=== PATIENT | female | born 1945 | race Caucasian/White ===

== ENCOUNTER 2016-12-20 09:09 | Inpatient (IN) | payer MEDICARE, OTHER ==
[~2016-12-20] VITALS: Ht 152.4 cm; Wt 50.1 kg
[~2016-12-20 09:09] MED LIST: CEPH500C3 PO
[2016-12-20 09:15] VITALS: BP 140/80; PULSE 73; RESP 16; TEMP 97.4; O2SAT 100
--- NOTE | 2016-12-20 09:42 | PD ---
HPI Chief Complaint: Fall Time Seen by Provider: 09:39 Travel History International Travel<30 days: No Contact w/Intl Traveler<30days: No Traveled to known affect area: No History of Present Illness HPI 71-year-old female patient presents to the ER today because she states that she was on a step ladder about 2 rungs up when she fell backwards onto her back on Saturday. His been 3 days and she states that she is still having significant lower back pains in the area where she fell. She also hit her head but had no loss of consciousness. She has been having headaches but no vomiting. She denies any other issues or injuries. She states her pain is currently a 9 out of 10. Modifying Factors: None Associated Signs & Symptoms: Fall from step ladder, lower back pain, minor head injury Risk Factors: None PFSH Past Medical History Diminished Hearing: No Influenza Vaccination: No Past Surgical History Other Surgery: Yes (thyroidectomy) Social History Alcohol Use: Yes (occ) Tobacco Use: No Allergies-Medications (Allergen,Severity, Reaction): Coded Allergies: No Known Allergies (Unverified , 12/20/16) Reported Meds & Prescriptions Reported Meds & Active Scripts Active No Active Prescriptions or Reported Medications Review of Systems Except as stated in HPI: all other systems reviewed are Neg Physical Exam Narrative GENERAL: Well-developed elderly white female patient currently in mild distress. Awake and oriented 3. SKIN: Focused skin assessment warm/dry. HEAD: Atraumatic. Normocephalic. EYES: Pupils equal and round. No scleral icterus. No injection or drainage. ENT: No nasal bleeding or discharge. Mucous membranes pink and moist. NECK: Trachea midline. No JVD. CARDIOVASCULAR: Regular rate and rhythm. No murmur appreciated. RESPIRATORY: No accessory muscle use. Clear to auscultation. Breath sounds equal bilaterally. GASTROINTESTINAL: Abdomen soft, non-tender, nondistended. Hepatic and splenic margins not palpable. Pelvis: Stable and nontender to palpation. MUSCULOSKELETAL: No obvious deformities. No clubbing. No cyanosis. No edema. BACK: No CVA tenderness. No rash. No point tenderness on palpation of the spine. NEUROLOGICAL: Awake and alert. No obvious cranial nerve deficits. Motor grossly within normal limits. Normal speech. PSYCHIATRIC: Appropriate mood and affect; insight and judgment normal. Data Data Last Documented VS Vital Signs Date Time Temp Pulse Resp B/P Pulse Ox O2 Delivery O2 Flow Rate FiO2 12/20/16 10:48 18 12/20/16 10:22 81 138/70 97 Room Air 12/20/16 09:[address] Brain W/O Iv Contrast(Rout) (12/20/16 09:39) Ct Lumb Spine W/O Contrast (12/20/16 09:39) Acetamin-Hydrocod 325-5 Mg ([place] 5-325 (12/20/16 09:45) MDM Medical Decision Making Medical Screen Exam Complete: Yes Emergency Medical Condition: Yes Medical Record Reviewed: Yes Interpretation(s) Last [address] Impressions [address] 12/20/16938 Signed Impressions: Service Date/Time: November 10:06 - CONCLUSION: Mild severity compressive injury at T12. No evidence of retropulsion. The injury does appear amenable to stabilization with kyphoplasty if indicated Daniel Alcala MD Head CT 12/20/16938 Signed Impressions: Service Date/Time: November 10:02 - CONCLUSION: Normal examination for a patient of this age. Kael Disla MD Differential Diagnosis Fall, back pain, head injuryrule out intracranial injuries versus fractures versus contusions Narrative Course X-rays show T12 mild compression which could be a cause of her pain. CT of the brain is negative. At this point, Diagnosis Primary Impression: T12 compression fracture Additional Instructions: Follow-up with orthopedics for further treatment. Return for any worsening in pain or new symptoms as needed. Med/Other Pt SpecificInfo: Prescription(s) given Scripts Docusate Sodium 100 Mg Ftv029 Mg PO BID #20 TAB Prov:Gentry Thompson MD 12/20/16 Hydrocodone-Acetaminophen (Lortab)5-325 Mg Tab1-2 Tab PO Q6H PRN (PAIN) #20 TAB Ref 0 Prov:Gentry Thompson MD 12/20/16 Disposition: 01 DISCHARGE HOME Condition: Stable Gentry Thompson MD December 20, 2016 09:42
[2016-12-20] MEDS ORDERED: ACETAMINOPHEN/HYDROcodone 325 MG/5 MG TAB PO ONE (09:45)
[2016-12-20 10:22] VITALS: BP 138/70; PULSE 81; RESP 18; O2SAT 97
--- NOTE | 2016-12-20 10:37 | RADHPO ---
EXAM DATE/TIME: 12/20/2016 10:02 [facility] COMPARISON: No previous studies available for comparison. INDICATIONS : Fall from step stool three days ago, ongoing headaches. RADIATION DOSE: 58.70 CTDIvol (mGy) MEDICAL HISTORY : None SURGICAL HISTORY : None. ENCOUNTER: Initial ACUITY: 3 days PAIN SCALE: 3/10 LOCATION: Bilateral cranial TECHNIQUE: Multiple contiguous axial images were obtained of the head. Using automated exposure control and adj ustment of the mA and/or kV according to patient size, radiation dose was kept as low as reasonably a chievable to obtain optimal diagnostic quality images. FINDINGS: CEREBRUM: The ventricles are normal for age. No evidence of midline shift, mass lesion, hemorrhage or acute in farction. No extra-axial fluid collections are seen. POSTERIOR FOSSA: The cerebellum and brainstem are intact. The 4th ventricle is midline. The cerebellopontine angle i s unremarkable. EXTRACRANIAL: The visualized portion of the orbits is intact. SKULL: The calvaria is intact. No evidence of skull fracture. CONCLUSION: Normal examination for a patient of this age. Kael Disla MD on December 20, 2016 at 10:32 Board Certified Radiologist. This report was verified electronically.
--- NOTE | 2016-12-20 10:43 | RADHPO ---
EXAM DATE/TIME: 12/20/2016 10:06 [facility] COMPARISON: No previous studies available for comparison. INDICATIONS : Fall three days ago, continued lower back pain. RADIATION DOSE: 18.02 CTDIvol (mGy) MEDICAL HISTORY : None SURGICAL HISTORY : None. ENCOUNTER: Initial ACUITY: 1 day PAIN SCALE: 9/10 LOCATION: lower back. TECHNIQUE: Volumetric scanning of the lumbar spine was performed. Multiplanar reconstructions in the sagittal, coronal and oblique axial planes were performed. Using automated exposure control and adjustment of the mA and/or kV according to patient size, radiation dose was kept as low as reasonably achievable t o obtain optimal diagnostic quality images. FINDINGS: Lumbar spine alignment is normal. There is a compressive injury involving T12 with about 20% loss of central to ventral vertebral body height. There is no evidence of bony retropulsion. Disruption mainl y involves the inferior endplate region. The lumbar vertebra are intact throughout. There is no evide nce of bony canal or foraminal compromise. There is mild disc disease with disc space narrowing and v acuum phenomena at L4-5. Less severe changes at other levels. There is no evidence of paraspinal karel fozia. There is posterior facet arthropathy most significantly at L4-5 CONCLUSION: Mild severity compressive injury at T12. No evidence of retropulsion. The injury does appear amenable to stabilization with kyphoplasty if indicated Daniel Alcala MD on December 20, 2016 at 10:37 Board Certified Radiologist. This report was verified electronically.
[2016-12-20] MEDS ORDERED: HYDR-3533 PO (11:08)
[2016-12-20] MEDS ORDERED: DOCU100T9 PO (11:08)
[2016-12-20 11:44] VITALS: BP 135/68; PULSE 71; RESP 20; O2SAT 99
[2016-12-20 11:44] LABS: AUTOMATED NEUTROPHIL # 10.7 TH/MM3 (1.8-7.7); BASOPHIL # 0.1 TH/MM3 (0-0.2); BASOPHIL % 0.4 % (0.0-2.0); EOSINOPHIL # 0.1 TH/MM3 (0-0.4); EOSINOPHIL % 0.4 % (0.0-4.0); HEMATOCRIT 39.5 % (35.0-46.0); LYMPH % 12.8 % (9.0-44.0); LYMPHOCYTE # 1.7 TH/MM3 (1.0-4.8); MEAN CELL VOLUME 89.5 FL (80.0-100.0); MEAN CORPUSCULAR HEMOGLOBIN 30.5 PG (27.0-34.0); MEAN CORPUSCULAR HGB CONC 34.1 % (32.0-36.0); MONO % 5.1 % (0.0-8.0); NEUT % 81.3 % (16.0-70.0); PLATELET COUNT 314 TH/MM3 (150-450); RED BLOOD COUNT 4.42 MIL/MM3 (4.00-5.30); RED CELL DISTRIBUTION WIDTH 12.1 % (11.6-17.2); WHITE BLOOD COUNT 13.3 TH/MM3 (4.0-11.0)
[2016-12-20 11:45] LABS: HEMO FLAGS AUTO DIFF
[2016-12-20] MEDS ORDERED: SODIUM CHLORIDE 0.9% FLUSH 10 ML FLUSH IV FLUSH PRN (11:45)
[2016-12-20] MEDS ORDERED: ACETAMINOPHEN 325 MG TAB PO PRN (11:45)
[2016-12-20] MEDS ORDERED: SENNOSIDES 8.6 MG TAB PO PRN (11:45)
[2016-12-20] MEDS ORDERED: MAGNESIUM HYDROXIDE SUSP 30 ML CUP PO PRN (11:45)
[2016-12-20] MEDS ORDERED: BISACODYL 10 MG SUPP RECTAL PRN (11:45)
[2016-12-20] MEDS ORDERED: LACTULOSE SYRUP 20 GM/30 ML CUP PO PRN (11:45)
[2016-12-20] MEDS ORDERED: NALOXONE HCL 0.4 MG/ML AMP IV PRN (11:45)
[2016-12-20 11:52] LABS: POTASSIUM 4.3 MEQ/L (3.5-5.1)
--- NOTE | 2016-12-20 11:54 | RADHPO ---
EXAM DATE/TIME: 12/20/2016 11:36 [facility] COMPARISON: No previous studies available for comparison. INDICATIONS : Fall, short of breath, back pain. MEDICAL HISTORY : None. SURGICAL HISTORY : None. ENCOUNTER: Initial ACUITY: 3 days PAIN SCORE: 0/10 LOCATION: Bilateral chest FINDINGS: Portable AP view of the chest demonstrates a normal-sized cardiac silhouette. No effusion, consolidat ion, or pneumothorax is visualized. The bones and soft tissues demonstrate no acute abnormality. Ther e is calcification of the aorta CONCLUSION: No acute cardiopulmonary abnormality is identified. Daniel Soliz MD on December 20, 2016 at 11:52 Board Certified Radiologist. This report was verified electronically.
[2016-12-20 11:55] LABS: BICARBONATE 25.8 MEQ/L (21.0-32.0)
[2016-12-20 12:09] LABS: SCAN/DIFF AUTO DIFF CONFIRMED
[2016-12-20 12:56] LABS: APTT (PATIENT) 24.5 SEC (24.3-30.1); PROTHROMBIN TIME - PATIENT 10.7 SEC (9.8-11.6)
--- NOTE | 2016-12-20 13:09 | MH ---
cc: OSWALDO FUNES DATE OF ADMISSION 12/20/2016 CHIEF COMPLAINT Back pain and inability to care for self at home. ADMISSION DIAGNOSIS T12 compression fracture acute HISTORY OF PRESENT ILLNESS Ms. Haynes is a 71-year-old white female who is generally very healthy who was cleaning her house three days ago and was standing on a counter to clean her blinds when she fell backwards off the counter and landed flat her back. She notes that it took her breath away and she may have lost consciousness for just a few seconds. She really had no head trauma, but it was more to her back. She states it took her some time to be able to get off of the floor and she has had tremendous difficulty over the past few days in being able to mobilize. She has gotten to the point where she could not even get out bed last night to get to the bathroom due to the pain, so came to the hospital for evaluation today. PAST MEDICAL HISTORY Significant for: 1. Hyperlipidemia 2. Hypertension which is controlled by diet and activity. 3. Osteoporosis for which she has declined medications. PAST SURGICAL HISTORY 1. Cholecystectomy 2. Basal cell cancer 3. Partial thyroidectomy SOCIAL HISTORY She is since 2012 when her of a sudden cardiac . She is retired from the . She has one glass of wine or beer per evening. She has a former 20 pack year history of tobacco, quit in 1979, no current use. MEDICATIONS Only include: 1. Fish oil 2. A lot of vitamins. ALLERGIES NIACIN WHICH CAUSED BURNING TO THE SKIN. FAMILY HISTORY She has two brothers who are healthy, three daughter who are healthy. Dad of leukemia at age 34. Mom at age 79 with pancreatic cancer. She also had hyperlipidemia and Parkinson's disease. She has no family who lives in town. VACCINATIONS She had a pneumonia vaccine in 1998, but has declined any further vaccines. REVIEW OF SYSTEMS Denies any chest discomfort, but has had some shortness of breath over the past few days, but she states it is because when she takes a deep breath, she has significant pain to her back and it catches her breathing. She has not had any cough or sputum production. No fever, sweats or chills. No abdominal pain. No nausea or vomiting. She has had difficulty having bowel movements since her fall. No dysuria or hematuria, but, she has difficulty getting to the bathroom due to her back pain. No lower extremity edema. She has very mild bruising to her left lower leg, but otherwise no injuries. She does not have any significant injury to her head with the fall. She really feels that she landed on her back. She notes no pain to her lower extremities, but if she moves her legs to high, it hurts her back. Moving her arms does not hurt into her arms, but hunching her shoulders also hurts into her back as well as deep breathing. Remaining review of systems is negative. OBJECTIVE Her temperature is 97.4, pulse 73, respiratory rate 16, blood pressure 140/80, O2 sat was 100% on room air. In general, she is a thin well-developed white female in no acute distress sitting on the stretcher in the emergency room. She was worried when I came in to see her be regarding her overall health as she is normally very healthy and very mobile HEENT: Pupils are equal and reactive. Oropharynx is benign. There is no bruising, masses or cuts noted to her scalp. NECK: Supple without lymphadenopathy. No supraclavicular adenopathy. CARDIOVASCULAR: Regular rate and rhythm without murmurs. LUNGS: Clear to auscultation bilaterally. No wheezes, no rhonchi, however, she refrained from taking a deep breath due to pain in her back. ABDOMEN: Soft with normal bowel sounds. No hepatosplenomegaly or masses. Nontender. EXTREMITIES: Her arms show no evidence of lesions. There is no bruising. BACK: Her back shows tenderness over the mid spine not so much to the paraspinal musculature. She does hurt down into her low back also over the ischial tuberosity. She has no lateral hip tenderness. She has a full range of motion of the hips and knees on exam, but with full flexion at the hips re extension with her legs straight, she does have pain radiating to the back. EXTREMITIES: There is no calf edema. She has a slight bruise to the left medial lower extremity very minimal, 2+ dorsalis pedis pulses and good range of motion. She has 5/5 distal strength bilaterally as long as she does not effect her back at all. LABS White count slightly elevated at 13.3, likely stress response. Hemoglobin 13.5, platelets of 314. Basic metabolic panel is within normal limits. IMAGING Shows a T12 compression fracture, otherwise negative. She did have a head CT done which showed a normal exam and a chest x-ray which showed no acute cardiopulmonary disease. ASSESSMENT/PLAN 1. T12 compression fracture. The patient is significantly uncomfortable. She has no family locally. She has difficulty mobilizing about her house at this time. I have admitted her to the hospital and consulted Interventional radiology for kyphoplasty and have discussed this with her. She is somewhat hesitant to take medications or have procedures, but will discuss those options as she is really not mobile at this time. We will also have physical therapy see her in the process. If kyphoplasty reduces her pain to a level where she could become relatively normally mobile, we will see about getting her home versus having her go to rehab short term until she is mobile to an extent that she can be at home alone. She states she has no family that she Can have some stay with her for the short-term. 2. Hypertriglyceridemia. She has been monitoring this with diet and has been under relatively good control. She declines Medications. She had been having some atypical chest discomfort last year and have a cardiac evaluation that was negative. I see no reason to keep her from doing a kyphoplasty at this time. 3. Elevated blood pressure history. She has never actually had Hypertension. We have just been monitoring it. Her blood pressures have been adequately controlled without medications. She continues with diet and regular activity. 4. History of thyroid surgery. TSH done in October was within normal limits. She is not in need of any thyroid supplementation at this time. MD BERNICE Burciaga/VANNESSA /12:25 PM /12:47 PM BECKA
[2016-12-20 14:00] VITALS: BP 141/87; PULSE 75; RESP 20; TEMP 97.2; O2SAT 95
[2016-12-20 16:00] VITALS: BP 121/71; PULSE 74; RESP 20; TEMP 97.2; O2SAT 95
[2016-12-20] MEDS: ACETAMINOPHEN/HYDROcodone 325 MG/5 MG TAB PO PRN (18:12)
[2016-12-20] MEDS: NAPROXEN 375 MG TAB PO SCH (18:59)
[2016-12-20 20:00] VITALS: BP 138/79; PULSE 72; RESP 20; TEMP 97; O2SAT 91
[2016-12-20] MEDS: DOCUSATE SODIUM 50 MG/SENNA 8.6 MG TAB PO SCH (22:15)
[2016-12-20] MEDS: SODIUM CHLORIDE 0.9% FLUSH 10 ML FLUSH IV FLUSH SCH (22:15)
[2016-12-21] VITALS (10 sets, daily range): BP systolic 109–145; BP diastolic 61–92; PULSE 61–85; RESP 14–20; TEMP 96.5–97.4; O2SAT 94–99
[2016-12-21] MEDS: ACETAMINOPHEN/HYDROcodone 325 MG/5 MG TAB PO PRN (02:39)
[2016-12-21] MEDS ORDERED: NITROGLYCERIN 0.4 MG SL 25 TABS/BTL SL PRN (02:45)
[2016-12-21 03:08] LABS: CREATINE KINASE 116 U/L (26-192)
[2016-12-21 03:20] LABS: CKMB 1.8 NG/ML (0.5-3.6)
[2016-12-21] MEDS ORDERED: ceFAZolin 2 GM PREMIX 50 ML IV SCH (04:00)
[2016-12-21] MEDS ORDERED: MIDAZOLAM HCL 5 MG/5 ML VIAL IV ONE (08:40)
[2016-12-21] MEDS ORDERED: fentaNYL CITRATE 250 MCG/5 ML AMP IV ONE (08:40)
[2016-12-21] MEDS: NAPROXEN 375 MG TAB PO SCH ×2 (09:00→21:00)
[2016-12-21] MEDS: SODIUM CHLORIDE 0.9% FLUSH 10 ML FLUSH IV FLUSH SCH ×2 (09:00→21:00)
--- NOTE | 2016-12-21 09:35 | PD.RAD ---
Post Procedure Progress Note Pre Procedure Diagnosis: (1) T12 compression fracture Post Procedure Diagnosis: (1) T12 compression fracture Procedure Date: December 21, 2016 Supervising Radiologist: Daniel Alcala Proceduralist/Assist: RT Honey(R)() Anesthesia: Local, Conscious Sedation Plan of Activity Patient to Unit: PACU Patient Condition: Good See PACS Report for procedural detail/treatment Spinal Procedure Kyphoplasty T12 Total Bone Cement (CCs): 3 Plan OK to D/C later today if stable and comfortable. No lifting >10lbs for 2 wks gradually resume normal activity as tolerated Daniel Alcala MD December 21, 2016 09:35
[2016-12-21] MEDS ORDERED: BUPIVACAINE HCL PF 0.75% 10 ML VIAL ONE (09:48)
--- NOTE | 2016-12-21 11:57 | RADHPO ---
EXAM DATE/TIME: 12/21/2016 08:02 [facility] COMPARISON: No previous studies available for comparison. INDICATIONS : Patient with a history of T12 fracture needs kyphoplasty. MEDICAL HISTORY : None. SURGICAL HISTORY : Thyroidectomy ENCOUNTER: Initial ACUITY: 4-6 days PAIN SCORE: 9/10 LOCATION: Low back FLUORO TIME: 9.25 minutes IMAGE SERIES: 0 SEDATION TIME: 40 minutes LEVEL: T12 MEDICATION(S): 1.) 3 mg midazolam (Versed) IV 2.) 150 mcg fentanyl (Sublimaze) IV DEVICE: 1. 3 cc AVAMax bone cement PROCEDURE : 1. Fluoroscopically-guided kyphoplasty. 2. Conscious sedation with continuous EKG and oximetry monitoring. TECHNIQUE: Department of anesthesia representatives were present for monitoring and sedation purp oses. The patient was placed prone on the fluoroscopy table. The back was prepped in sterile fashion. Full sterile technique was used, including cap, mask, sterile gloves and gown and a large sterile sh eet. Hand hygiene and 2% chlorhexidine and/or betadine/alcohol prep was utilized per protocol for cut aneous antisepsis. The skin and subcutaneous tissues were infiltrated with lidocaine solution. A smal l dermatotomy was made using a #11 scalpel blade. Using a left posterior paramedian extrapedicular ap proach, a 13 gauge Jamshidi needle was introduced to the T12 vertebral body. A 15 mm balloon tamp was introduced and inflated, resulting in good cavity creation and some degree of vertebral height jean pierre ration. AVAmax bone cement was then introduced with good symmetric filling of the vertebral body. A t otal volume of 3 mL's of cement was introduced. Completion imaging was performed with [employer] ue. The patient tolerated the procedure well and was taken to the recovery area in stable condition. CONCLUSION: Uncomplicated fluoroscopic guided percutaneous vertebral augmentation as described in detail above. Daniel Alcala MD on December 21, 2016 at 11:53 Board Certified Radiologist. This report was verified electronically.
--- NOTE | 2016-12-21 14:02 | HHI.FPPN ---
Subjective Remarks Feeling a bit better. She had severe pain trying to get out of bed this AM prior to the procedure (states she was screaming it was so bad). Now, first time up since procedure she was able to get up with minimal pain. Still very cautious and fearful. She was coming back from the bathroom as I entered. She gingerly got into the recliner chair, walking well but slow with the walker. She vomited a fair amount of clear yellow fluid and then overall felt better but very weak. She hasn't had anything to eat. I spoke with her daughter, Grisel, who notes she will be coming up from [place] tomorrow. overnight she had an episode of chest pain, lasted less than 15 minutes but was gripping to the chest. No n/v. no SOB. BP was elevated at the time. she has that happen at times over the past few years. She had a negative cardiac w/u about 1.5 years ago, got better after cholecystectomy but still happens at times not really associated with activity nor with food intake. Objective Vitals Vital Signs Date Time Temp Pulse Resp B/P Pulse Ox O2 Delivery O2 Flow Rate FiO2 12/21/16 11:52 96.8 73 18 145/80 94 12/21/16 11:05 71 20 128/68 97 12/21/16 10:35 61 18 112/61 98 12/21/16 10:35 Nasal Cannula 12/21/16 10:05 73 18 109/63 98 12/21/16 09:50 97.0 77 14 109/76 98 12/21/16 08:00 96.8 75 20 140/92 98 12/21/16 04:00 96.5 75 20 129/73 99 12/21/16 00:00 97.0 80 20 123/70 96 12/20/16 20:00 97.0 72 20 138/79 91 12/20/16 16:00 97.2 74 20 121/71 95 12/20/16 14:00 97.2 75 20 141/87 95 I/O 12/20/16 12/20/16 12/20/16 12/21/16 12/21/16 12/21/16 07:00 15:00 23:00 07:00 15:00 23:00 Intake Total 210 ml 60 ml 0 ml 1010 ml Balance 210 ml 60 ml 0 ml 1010 ml Intake Oral 210 ml 60 ml 510 ml IV Total 0 ml 500 ml # Voids 1 1 1 # Bowel Movements 0 0 Result Diagram: 12/20/16 1130 12/20/16 1130 Objective Remarks Gen: WDWF, looks scared, cautious, not quite feeling well, nauseated CV: RRR, no murmur Lungs: CTA bilaterally, able to take a deep breath now without pain Abd: normal BS, nontender Ext: no edema, small bruise to the left anterior LE, able to lift legs off the chair cautiously, 5/5 dorsi and plantar flexion of the ankles Urinary Catheter: No Vascular Central Line Catheter: No A/P Discharge Planning To home tomorrow when her daughter arrives Problem List: (1) T12 compression fracture Status: Acute Plan: s/p kyphoplasty today. She is doing significantly better but still fearful and unsteady on feet, nauseated, hasn't eaten, generally weak. Her daughter will be coming to stay with her for a week and will be here tomorrow. Will keep her overnight for safe discharge tomorrow. She feels she wants to work on activity on her own at home and not have home health/PT. She normally is very active, independent without meds. Encouraged patient to use aleve BID for a week to help control pain. She doesn't like to use medications and doesn' t really want that. Doesn't want meds for nausea or narcotic pain meds. She may do well with just tylenol if she needs anything. (2) Chest pain Status: Acute Plan: May be some GERD/GI issues. CArdiac eval has been negative. EKG and enzymes were negative at the time of pain last PM. Feeling well at this time. Cardiac eval in the past year with stress testing was negative. She doesn't usually have CP with activities as outpatient. Problem Qualifiers (1) T12 compression fracture: Qualified Code: S22.080A - T12 compression fracture, closed, initial encounter (2) Chest pain: Qualified Code: R07.1 - Chest pain on breathing Rima Higuera MD December 21, 2016 14:02
[2016-12-21] MEDS ORDERED: NAPR375T PO (14:04)
[2016-12-21] MEDS ORDERED: ACET1TAB86 PO (14:04)
[2016-12-21] MEDS ORDERED: SENN1TAB PO (14:04)
--- NOTE | 2016-12-21 14:06 | HHI.PR ---
Addendum to Inpatient Note Addendum Reason: Additional Documentation Additional Information Pt notes she has access to a cane and walker at home already. She is aware not to get on chairs, ladders and the like. NO lifting more than 10 pounds for several weeks. Gradually increase activity as tolerated. Minimize bending and stooping. Control constipation. Rima Higuera MD December 21, 2016 14:06
[2016-12-21] MEDS: DOCUSATE SODIUM 50 MG/SENNA 8.6 MG TAB PO SCH ×2 (15:10→21:45)
[2016-12-21] MEDS ORDERED: ZOLPIDEM TARTRATE 5 MG TAB PO PRN (21:00)
[2016-12-21] MEDS ORDERED: ZOLPIDEM TARTRATE 5 MG TAB PO SCH (21:00)
[2016-12-22] VITALS: BP 119/64; PULSE 80; RESP 16; TEMP 97; O2SAT 100
[2016-12-22 00:54] VITALS: BP 138/102; PULSE 72; RESP 16; O2SAT 99
[2016-12-22 08:00] VITALS: BP 133/83; PULSE 85; RESP 18; TEMP 96.3; O2SAT 99
--- NOTE | 2016-12-22 08:52 | HHI.PR ---
Subjective Remarks [facility] weekend coverage; patient is resting comfortably with no distress. low back pain has much improved. no chest pain or sob today. no new complaints. Objective Vitals Vital Signs Date Time Temp Pulse Resp B/P Pulse Ox O2 Delivery O2 Flow Rate FiO2 12/22/16 04:00 12/22/16 00:00 97.0 80 16 119/64 100 12/21/16 21:28 97.2 85 18 131/75 98 12/21/16 16:00 97.4 83 20 140/81 97 12/21/16 11:52 96.8 73 18 145/80 94 12/21/16 11:05 71 20 128/68 97 12/21/16 10:35 61 18 112/61 98 12/21/16 10:35 Nasal Cannula 12/21/16 10:05 73 18 109/63 98 12/21/16 09:50 97.0 77 14 109/76 98 I/O 12/21/16 12/21/16 12/21/16 12/22/16 12/22/16 12/22/16 07:00 15:00 23:00 07:00 15:00 23:00 Intake Total 0 ml 1010 ml Balance 0 ml 1010 ml Intake Oral 510 ml IV Total 0 ml 500 ml # Voids 1 1 4 # Bowel Movements 0 1 Result Diagram: 12/20/16 1130 12/20/16 1130 Imaging Last Impressions Chest X-Ray 12/20/16 1120 Signed Impressions: Service Date/Time: November 11:36 - CONCLUSION: No acute cardiopulmonary abnormality is identified. Daniel Soliz MD Lumbar Spine CT 12/20/16 0939 Signed Impressions: Service Date/Time: November 10:06 - CONCLUSION: Mild severity compressive injury at T12. No evidence of retropulsion. The injury does appear amenable to stabilization with kyphoplasty if indicated Daniel Alcala MD Head CT 12/20/16 0939 Signed Impressions: Service Date/Time: November 10:02 - CONCLUSION: Normal examination for a patient of this age. Kael Disla MD Vertebroplasty 12/20/16 0000 Signed Impressions: Service Date/Time: Wednesday, December 21, 2016 08:02 - CONCLUSION: Uncomplicated fluoroscopic guided percutaneous vertebral augmentation as described in detail above. Daniel Alcala MD Objective Remarks GENERAL: This is a well-nourished, well-developed patient, in no apparent distress. CARDIOVASCULAR: Regular rate and regular rhythm without murmurs, gallops, or rubs. RESPIRATORY: Clear to auscultation. Breath sounds equal bilaterally. No wheezes , rales, or rhonchi. GASTROINTESTINAL: Abdomen soft, non-tender, nondistended. Normal, active bowel sounds MUSCULOSKELETAL: Extremities without clubbing, cyanosis, or edema. NEURO: Alert & Oriented x4 to person, place, time, situation. Moves all ext x4 Procedures T12 kyphoplasty Medications and IVs Current Medications Acetaminophen/ Hydrocodone Bitart (Rosewood 5-325 Mg) 1 tab ONCE ONCE PO Last administered on 12/20/16 09:43; Start 12/20/16 at 09:45; Stop 12/20/16 at 09:46 ; Status DC Sodium Chloride (NS Flush) 2 ml UNSCH PRN IV FLUSH FLUSH AFTER USING IV ACCESS ; Start 12/20/16 at 11:45 Sodium Chloride (NS Flush) 2 ml BID IV FLUSH Last administered on 12/21/16 21: 00; Start 12/20/16 at 21:00 Acetaminophen (Tylenol) 650 mg Q4H PRN PO PAIN SCALE 1 TO 4/COUGH; Start at 11:45 Naloxone HCl (Narcan Inj) 0.4 mg UNSCH PRN IV SEE LABEL COMMENTS; Start at 11:45 Senna/Docusate Sodium (Pili-Colace) 1 tab BID PO Last administered on 21:45; Start 12/20/16 at 21:00 Magnesium Hydroxide (Milk Of Magnesia Liq) 30 ml Q12H PRN PO MILD - MODERATE CONSTIPATION; Start 12/20/16 at 11:45 Sennosides (Senokot) 17.2 mg Q12H PRN PO MODERATE - SEVERE CONSTIPATION; Start 12/20/16 at 11:45 Bisacodyl (Dulcolax Supp) 10 mg DAILY PRN RECTAL SEVERE CONSITIPATION; Start at 11:45 Lactulose (Lactulose Liq) 30 ml DAILY PRN PO SEVERE CONSITIPATION; Start at 11:45 Acetaminophen/ Hydrocodone Bitart (Rosewood 5-325 Mg) 1 tab Q6H PRN PO PAIN SCALE 5 TO 10 Last administered on 12/21/16 02:39; Start 12/20/16 at 11:45 Naproxen 375 mg 375 mg Q12HR PO Last administered on 12/21/16 09:00; Start at 21:00 Cefazolin Sodium/ Dextrose (Ancef 2 Gm Premix) 50 ml @ 100 mls/hr [employer] IV ; Start 12/21/16 at 04:00; Stop 12/24/16 at 03:59 Nitroglycerin (Nitrostat Sl) 0.4 mg Q5M PRN SL CHEST PAIN X3 Last administered on 12/21/16 03:16; Start 12/21/16 at 02:45 Bupivacaine HCl (Marcaine Pf 0.75% Inj) 10 ml STK-MED ONCE .XX Last administered on 12/21/16 09:48; Start 12/21/16 at 09:48; Stop 12/21/16 at 09:49 ; Status DC Midazolam HCl (Versed Inj) 3 mg STK-MED ONCE IV Last administered on 12/21/16 08:40; Start 12/21/16 at 08:40; Stop 12/21/16 at 10:43; Status DC Fentanyl Citrate (fentaNYL INJ) 150 mcg STK-MED ONCE IV Last administered on 08:40; Start 12/21/16 at 08:40; Stop 12/21/16 at 10:43; Status DC Zolpidem Tartrate (Ambien) 2.5 mg HS PO Last administered on 12/21/16 21:46; Start 12/21/16 at 21:00; Stop 12/21/16 at 21:01; Status DC Zolpidem Tartrate (Ambien) 2.5 mg UNSCH X1 PRN PO FOR REPEAT DOSE OF 2.5MG; Start 12/21/16 at 21:00; Stop 12/22/16 at 05:00; Status DC A/P Assessment and Plan A/P -T12 compression fracture- s/p kyphoplasty- now back pain has much improved. continue with pain control- f/u with IR as outpatient. no lifting more than 10 pounds for a few weeks. Discharge Planning dc home today with [facility]. see med list. f/u with pcp and IR. d/w the patient. Giana Martinez MD December 22, 2016 08:52
--- NOTE | 2016-12-22 08:53 | HHI.FF ---
Face to Face Verification Diagnosis: (1) T12 compression fracture Physical Therapy Order: Evaluate and Treat I have seen patient Kina Haynes on 12/22/16. My clinical findings support the need for the requested home health care services because: Ltd mobility - disease progression I certify that my clinical findings support that this patient is homebound because: Unsteady gait/balance Giana Martinez MD December 22, 2016 08:52
--- NOTE | 2016-12-22 08:53 | HHI.DCPOC ---
Discharge Care Plan Diagnosis: (1) T12 compression fracture Your Health Problems Are: Difficulty with ADL Chronic Pain Goals to Promote Your Health * To prevent worsening of your condition and complications * To maintain your health at the optimal level Directions to Meet Your Goals Take your medications as prescribed Follow your dietary instruction Follow activity as directed Keep your appointments as scheduled Take your immunizations and boosters as scheduled If your symptoms worsen call your PCP, if no PCP go to Urgent Care Center or Emergency Room Smoking is Dangerous to Your Health. Avoid second hand smoke Call the 24-hour hour crisis hotline for domestic abuse at Giana Martinez MD December 22, 2016 08:53
--- NOTE | 2016-12-22 08:54 | HHI.DS ---
Discharge Summary Admission Date December 20, 2016 at 12:12 Discharge Date: December 22, 2016 Admitting Diagnosis fall/T12 compression fractures (1) T12 compression fracture ICD Code: S22.080A Diagnosis: Principal Procedures T12 kyphoplasty Brief History - From Admission Ms. Haynes is a 71-year-old white female who is generally very healthy who was cleaning her house three days ago and was standing on a counter to clean her blinds when she fell backwards off the counter and landed flat her back. CBC/BMP: 12/20/16 1130 12/20/16 1130 Significant Findings Laboratory Tests Test 12/20/16 12/21/16 11:30 02:44 White Blood Count 13.3 TH/MM3 (4.0-11.0) Neutrophils (%) (Auto) 81.3 % (16.0-70.0) Neutrophils # (Auto) 10.7 TH/MM3 (1.8-7.7) Troponin I LESS THAN 0.02 NG/ML (0.02-0.05) Imaging Last Impressions Chest X-Ray 12/20/16 1120 Signed Impressions: Service Date/Time: November 11:36 - CONCLUSION: No acute cardiopulmonary abnormality is identified. Daniel Soliz MD Lumbar Spine CT 12/20/16 0939 Signed Impressions: Service Date/Time: November 10:06 - CONCLUSION: Mild severity compressive injury at T12. No evidence of retropulsion. The injury does appear amenable to stabilization with kyphoplasty if indicated Daniel Alcala MD Head CT 12/20/16 0939 Signed Impressions: Service Date/Time: November 10:02 - CONCLUSION: Normal examination for a patient of this age. Kael Disla MD Vertebroplasty 12/20/16 0000 Signed Impressions: Service Date/Time: Wednesday, December 21, 2016 08:02 - CONCLUSION: Uncomplicated fluoroscopic guided percutaneous vertebral augmentation as described in detail above. Daniel Alcala MD PE at Discharge GENERAL: This is a well-nourished, well-developed patient, in no apparent distress. CARDIOVASCULAR: Regular rate and regular rhythm without murmurs, gallops, or rubs. RESPIRATORY: Clear to auscultation. Breath sounds equal bilaterally. No wheezes , rales, or rhonchi. GASTROINTESTINAL: Abdomen soft, non-tender, nondistended. Normal, active bowel sounds MUSCULOSKELETAL: Extremities without clubbing, cyanosis, or edema. NEURO: Alert & Oriented x4 to person, place, time, situation. Moves all ext x4 Hospital Course -T12 compression fracture- s/p kyphoplasty- now back pain has much improved. continue with pain control- f/u with IR as outpatient. no lifting more than 10 pounds for a few weeks. Pt Condition on Discharge: Fair Discharge Disposition: Discharge Home Discharge Time: <= 30 minutes Discharge Instructions DIET: Follow Instructions for: Heart Healthy Diet Activities you can perform: Regular-No Restrictions Activities to Avoid: Lifting/Bending, Strenuous Activity Follow up Referrals: Appointment for Follow Up Appointment for Follow Up PCP Follow-up - 1 Week with [facility] New Medications: Acetaminophen (Eq Acetaminophen) 325 Mg Tab 650 MG PO Q4H PRN PAIN SCALE 1 TO 4/COUGH #0 Ref 0 TAB Naproxen (Naproxen) 375 Mg Tab 375 MG PO Q12HR Pain Management #0 Ref 0 TAB Sennosides-Docusate Sodium (Senna Plus 8.6-50 mg) 1 Tab Tab 1 TAB PO BID Constipation Days 10 Ref 1 TAB Discontinued Medications: Docusate Sodium (Docusate Sodium) 100 Mg Tab 100 MG PO BID #20 TAB Hydrocodone-Acetaminophen (Lortab) 5-325 Mg Tab 1-2 TAB PO Q6H PRN PAIN #20 Ref 0 TAB Giana Martinez MD December 22, 2016 08:54
[2016-12-22] MEDS: NAPROXEN 375 MG TAB PO SCH (09:00)
[2016-12-22] MEDS: SODIUM CHLORIDE 0.9% FLUSH 10 ML FLUSH IV FLUSH SCH (09:00)
[2016-12-22] MEDS: DOCUSATE SODIUM 50 MG/SENNA 8.6 MG TAB PO SCH (10:17)
--- NOTE | 2016-12-22 16:18 | EKG ---
Date Performed: 12/21/2016 Time Performed: 02:26:34 PTAGE: 71 years EKG: Sinus rhythm with PACs Small inferior Q waves of undetermined significance NO PREVIOUS TRACING DOCTOR: Baljit Abbott Interpretating Date/Time 12/22/2016 16:17:10
== END 2016-12-22 11:35 | disposition home health service (06) | DRG 517 ==
LOC: PHED 09:09 → PHEDA 11:43 → OBSVTOIN 12:12 → PH3B 12:47
PROVIDERS: ADMIT Family Medicine; ATTEND Family Medicine
PROC: 0PS43ZZ Reposition Thoracic Vertebra, Percutaneous Approach (ICD-10-PCS; principal; 2016-12-21)
PROC: 0PU43JZ Supplement Thoracic Vertebra with Synthetic Substitute, Percutaneous Approach (ICD-10-PCS; 2016-12-21)
DX: S22.088A Other fracture of T11-T12 vertebra, initial encounter for closed fracture (principal); I10 Essential (primary) hypertension; E78.5 Hyperlipidemia, unspecified; K59.00 Constipation, unspecified; W11.XXXA Fall on and from ladder, initial encounter; Y93.E9 Activity, other interior property and clothing maintenance; Y92.009 Unspecified place in unspecified non-institutional (private) residence as the place of occurrence of the external cause; Z87.891 Personal history of nicotine dependence
CPT/HCPCS: 22513; 70450; 71010; 72131; 80048; 82550; 82552; 84484; 85025; 85610; 85730; 93005; 99152; 99153; 99285; J2250; J3010

== ENCOUNTER 2017-01-01 14:21 | Day surgery (SDC) | payer MEDICARE ==
[~2017-01-01 14:21] MED LIST changes: +ACET1TAB86 PO; -CEPH500C3 PO; +NAPR375T PO; +SENN1TAB PO
--- NOTE | 2017-01-02 11:15 | RADRPT ---
EXAM DATE/TIME: 01/01/2017 00:00 [facility] COMPARISON : No previous studies available for comparison. INDICATIONS : follow up kyphoplasty OBJECTIVE: Temperature: 98.0 Heart Rate: 69 Blood Pressure: 147/78 Respiratory: 20 Oximetry: 97 HISTORY OF PRESENT ILLNESS: The patient underwent kyphoplasty December 21, 2016. The patient reports resolution of pain. Denies any di scomfort currently. Denies any complaints. PHYSICAL EXAMINATION: General: Awake and alert. No acute distress. Musculoskeletal: The access site has healed. No erythema or hematoma. ASSESSMENT: Patient doing well status post kyphoplasty. No complaints. PLAN: Followup as needed. TIME SPENT: <15 minutes Palmer Padilla Jr., MD on January 02, 2017 at 11:00 Board Certified Radiologist. This report was verified electronically.
== END 2017-01-01 14:45 | disposition home or self-care (01) ==
LOC: HROP 14:21 → HRIP 14:21 → HROP 14:45
PROVIDERS: ATTEND Radiology Body Imaging
DX: Z48.89 Encounter for other specified surgical aftercare (principal)